=== PATIENT | male | born 1980 | race Caucasian/White ===

== ENCOUNTER 2018-03-18 07:02 | Outpatient (CLI) | payer OTHER ==
--- NOTE | 2018-03-18 09:20 | ULT ---
ULTRASOUND ABDOMEN COMPLETE: HISTORY: Upper abdominal pain. COMPARISON: None. FINDINGS: Real-time, gaona scale, color Doppler, and spectral analysis of the abdomen was performed. The visual ized portions of the pancreas, aorta, and IVC are unremarkable. Hepatic echotexture is normal. The liver measures 17.6 cm in length. Portable is patent with antegrade flow. The common bile duct is normal. Gallbladder wall thickness is normal. There is cholelithiasis as well as nondependent gallbladder po lyp, 5 mm in size. The right kidney measures 11 x 4.2 x 5.3 cm without mass, hydronephrosis, or abno rmal calcifications. The spleen measures 13.5 cm in length. The left kidney measures 11.2 x 6.7 x 6 cm without mass, hydronephrosis, or abnormal calcifications. IMPRESSION: 1. Mild splenomegaly. 2. Cholelithiasis without cholecystitis. 3. Suggestion of 5 mm anterior wall gallbladder polyp. POS: [facility]
== END 2018-03-18 07:03 | disposition home or self-care (01) ==
LOC: SCSULT 07:02
PROVIDERS: ATTEND Internal Medicine Gastroenterology
DX: K21.9 Gastro-esophageal reflux disease without esophagitis (principal); R19.7 Diarrhea, unspecified; R10.10 Upper abdominal pain, unspecified; R11.2 Nausea with vomiting, unspecified; K80.20 Calculus of gallbladder without cholecystitis without obstruction; R16.1 Splenomegaly, not elsewhere classified
CPT/HCPCS: 76700

== ENCOUNTER 2018-04-08 08:42 | Outpatient (CLI) | payer OTHER ==
[2018-04-08 10:37] LABS: #Basophils 0.1 thou/uL (0.0-0.2); #Eosinphils 0.1 thou/uL (0.0-0.7); #Monocytes 0.3 thou/uL (0.11-0.59); #Neutrophils 4.4 thou/uL (1.40-6.50); %Basophils 0.7 % (0.0-1.0); %Eosinophils 1.4 % (0.0-10.0); %Lymphocytes 28.7 % (21.0-51.0); %Monocytes 4.8 % (0.0-10.0); %Neutrophils 64.3 % (42.0-75.0); Hemoglobin 15.9 g/dL (14.0-18.0); Mean Corpuscular HGB CONC 35.1 g/dL (32.0-36.0); Mean Corpuscular Hemoglobin 31.1 pg (27.0-31.0); Mean Corpuscular Volume 88.6 fL (78.0-98.0); Platelet Count 256 thou/uL (130-400); RBC Distribution Width 12.3 % (11.5-14.5); White Blood Cell (WBC) Count 6.9 thou/uL (4.8-10.8)
[2018-04-08 10:39] LABS: Anion Gap 10 mmol/L (10-20); BUN (Urea Nitrogen) 10 mg/dL (8.9-20.6); Calc. Creatinine Clearance 0 mL/min (70-130); Calcium 8.9 mg/dL (7.8-10.44); Carbon Dioxide 24 mmol/L (22-29); Chloride 106 mmol/L (98-107); Estimated GFR-MDRD Greater than 90; Glucose 101 mg/dL (70-105); Potassium 4.2 mmol/L (3.5-5.1); Sodium 136 mmol/L (136-145)
[2018-04-08 10:40] LABS: ALT (SGPT) 26 U/L (8-55); AST (SGOT) 18 U/L (5-34); Albumin 4.5 g/dL (3.5-5.0); Alkaline Phosphatase 50 U/L (40-150); Bilirubin, Direct 0.2 mg/dL (0.1-0.3); Bilirubin, Total 0.6 mg/dL (0.2-1.2)
[2018-04-08 13:05] LABS: Protein, Total 6.7 g/dL (6.0-8.3)
== END 2018-04-08 08:43 | disposition home or self-care (01) ==
LOC: LABBT 08:42
PROVIDERS: ATTEND Surgery
DX: Z01.812 Encounter for preprocedural laboratory examination (principal); K80.20 Calculus of gallbladder without cholecystitis without obstruction
CPT/HCPCS: 80048; 80076; 85025

== ENCOUNTER 2018-04-15 06:45 | Day surgery (SDC) | payer OTHER ==
[2018-04-08 09:18] VITALS: BMI 26.5
[2018-04-15] MEDS ORDERED: CEFAZOLIN/Water 2 GM/20 ML SYRINGE ONE (07:01)
[2018-04-15] MEDS ORDERED: Bupivacaine/Epinephrine 0.25% 30 ML VIAL ONE (09:02)
[2018-04-15] MEDS ORDERED: Midazolam HCl 2 mg/2 ml Vial ONE ×2 (09:05→09:20)
[2018-04-15] MEDS ORDERED: Fentanyl 250 MCG/5 ML VIAL ONE (09:05)
--- NOTE | 2018-04-15 10:26 | OP ---
DATE OF PROCEDURE: 04/15/2018 PREOPERATIVE DIAGNOSIS: Symptomatic gallstones. POSTOPERATIVE DIAGNOSIS: Symptomatic gallstones. PROCEDURE: Laparoscopic cholecystectomy. SURGEON: Dr. Howe. ANESTHESIA: General. ESTIMATED BLOOD LOSS: Minimal. COMPLICATIONS: None. SPECIMEN: Gallbladder. FINDINGS: Chronic cholecystitis. PROCEDURE IN DETAIL: The patient was taken to the Operating Room and laid supine on the Operating Pilar m table. After general anesthetic was obtained, the abdomen was prepped and draped in a sterile fashi on. A curved incision was made below the umbilicus. Cautery was used to dissect down to the umbilical fascia. Umbilical fascia was incised and held up using a Rhett. The abdominal cavity was entered us ing a Ramya clamp. Holding stitch of Vicryl was placed on each side of the fascia. Yu trocar was placed. High-flow pneumoperitoneum was obtained. An upper midline 5-mm port and two right upper quadr ant 5-mm ports were placed under direct camera visualization. The gallbladder was retracted from the gallbladder fossa. The peritoneum of the gallbladder was opened anteriorly and posteriorly. The criti michael view triangle was seen showing only the cystic duct and cystic artery branching from medial to la teral. There were no other branching structures. Two clips were placed proximally on the cystic duct and one laterally. It was cut using laparoscopic scissors. The cystic artery was taken in the same wa y. Electrocautery was then used to dissect the gallbladder out of the gallbladder fossa. The gallblad kahlil was placed in an Endo catch bag and brought out through the Yu. There was no bleeding or bile in the liver bed. The cystic duct stump and cystic artery stump were intact without evidence of extr avasation or bleeding. All port sites were infiltrated using local anesthesia. All ports were removed under camera visualization. Pneumoperitoneum was let down. The Vicryl was used to close the fascial defect below the umbilicus. All incisions were irrigated and closed using 4-0 Monocryl and DermaBond. The patient was en route to Recovery in stable condition. All instrument counts, needle counts and l ap counts were correct.
[2018-04-15] MEDS ORDERED: HYDROcodone/Acetaminophen 5/325 mg Tablet ONE (11:40)
== END 2018-04-15 13:20 | disposition home or self-care (01) ==
LOC: SDC 06:45
PROVIDERS: ATTEND Surgery
PROC: 0FT44ZZ Resection of Gallbladder, Percutaneous Endoscopic Approach (ICD-10-PCS; principal; 2018-04-15)
DX: K81.1 Chronic cholecystitis (principal); Z79.899 Other long term (current) drug therapy; Z88.1 Allergy status to other antibiotic agents
CPT/HCPCS: 88304; J2250; J3010

== ENCOUNTER 2020-06-22 10:45 | Outpatient (CLI) | payer BC ==
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
== END 2020-06-22 10:46 | disposition home or self-care (01) ==
LOC: SCSMRI 10:45
PROVIDERS: ATTEND Family Medicine
DX: S06.0X0D Concussion without loss of consciousness, subsequent encounter (principal)
CPT/HCPCS: 70551